=== PATIENT | male | born 1965 | race Caucasian/White ===

== ENCOUNTER 2017-02-14 02:37 | Emergency (ER) | payer OTHER ==
[~2017-02-14] VITALS: Ht 182.9 cm; Wt 113.0 kg
[2017-02-14 02:42] VITALS: BP 159/102; PULSE 57; TEMP 36.6; O2SAT 97; Ht 182.9 cm; Wt 113.0 kg
[2017-02-14] MEDS ORDERED: OXYCODONE/ACETAMINOPHEN 5-325 TAB PO ONE (03:15)
[2017-02-14] MEDS ORDERED: PERCOCET HOME PACK PO ONE (03:15)
[2017-02-14] MEDS ORDERED: DEXAMETHASONE SOD INJ 10 MG/ML VIAL IM ONE (03:15)
--- NOTE | 2017-02-14 03:21 | EMERGENCY ROOM VISIT NOTE ---
History Report prepared by [place]: Wei Christine Under the Supervision of: Dr. Panfilo Jon D.O. First contact with patient: 02:51 Chief Complaint: PAIN (GENERALIZED) Stated Complaint: PAIN History of Present Illness The patient is a 51 year old male who presents to the Emergency Room with complaints of persistent numbness in the right lower extremity. The patient states that the numbness starts below the waist and shoots down into the right foot. He notes that he threw his back out two weeks ago and has a history of lower back issues. His back issues are commonly improved by chiropractor intervention, however this has not relieved his symptoms currently. The patient visited [facility] before this visit and was given Hydrocodone, Flexeril and steroid prescriptions. He denies having any bowel movement irregularities, or becoming incontinent. Source of History: patient Position: leg (right) Quality: numbness Timing: other (Persistent) Note: Denies bowel movement irregularities. Review of Systems See HPI for pertinent positives and negatives. A total of ten systems were reviewed and were otherwise negative. Past Medical & Surgical Medical Problems: (1) Back pain Back pain Family History Diabetes mellitus FH: heart disease Hypertension Social History Smoking Status: Current Every Day Smoker Drug Use: none Marital Status: Housing Status: lives with significant other Occupation Status: employed Current/Historical Medications Unable to Obtain Active Prescriptions or Reported Meds Allergies Coded Allergies: No Known Allergies (Unverified Allergy, NONE, 01/04/09) Physical Exam Vital Signs Date Time Temp Pulse Resp B/P (MAP) Pulse Ox O2 Delivery O2 Flow Rate FiO2 02/14/17 02:42 36.6 57 18 159/102 97 Room Air Physical Exam GENERAL: Awake, alert, well-appearing, in no distress HENT: Normocephalic, atraumatic. Oropharynx unremarkable. EYES: Normal conjunctiva. Sclera non-icteric. NECK: Supple. No nuchal rigidity. FROM. No JVD. RESPIRATORY: Clear to auscultation. CARDIAC: Regular rate, normal rhythm. Extremities warm and well perfused. Pulses equal. ABDOMEN: Soft, non-distended. No tenderness to palpation. No rebound or guarding. No masses. RECTAL: Deferred. MUSCULOSKELETAL: Chest examination reveals no tenderness. The back is symmetrical on inspection without obvious abnormality. There is right lower back tenderness to palpation. There is also tenderness across the right Piriformis. He is ambulatory and able to stand. Negative straight leg raise. No joint edema. LOWER EXTREMITIES: Calves are equal size bilaterally and non-tender. No edema. No discoloration. NEURO: Normal sensorium. No sensory or motor deficits noted. SKIN: No rash or jaundice noted. Medical Decision & Procedures ED Course 0303: The patient was evaluated in room A10. A complete history and physical exam was performed. 0315: Ordered Oxycodone 1 homepack PO, Oxycodone 1 tablet PO, Dexamethasone 10 mg IM. 0331: I reevaluated the patient. Discussed results and discharge instructions: He verbalized understanding and agreement. The patient is ready for discharge. Medical Decision Differential Diagnosis includes; Sciatica, herniated disc, pinched nerve, neuropathy. Pt has no clinical exam evidence of cauda equina; can stand, ambulates; has exam suggestive of sciatica Will give steroid injection; change to percocet; encouraged to use the prednisone prescribed earlier today [place] Drug Monitoring Program Search Results: patient reviewed within database, no issues identified Drug Monitoring Findings: Patient was reviewed on [place] Drug Monitoring Program. Medication Reconcilliation Current Medication List: was personally reviewed by me Blood Pressure Screening Patient's blood pressure: Elevated blood pressure Blood pressure disposition: Referred to PCP Impression Primary Impression: Sciatica Scribe Attestation The scribe's documentation has been prepared under my direction and personally reviewed by me in its entirety. I confirm that the note above accurately reflects all work, treatment, procedures, and medical decision making performed by me. Departure Information Dispostion Home / Self-Care Prescriptions Oxycodone/Acetaminophen 5MG/325MG (PERCOCET 5MG/325MG) Tab 1 TAB PO Q4H Y for Pain, #12 TAB Prov: Panfilo Jon, DO 02/14/17 Referrals No Doctor, Assigned (PCP) Patient Instructions ED Sciatica, My [facility] Additional Instructions Continue flexeril, ibuprofen, prednisone, and narcotic pain med
[2017-02-14] MEDS ORDERED: OXYC-57 PO (03:39)
[2017-02-14] MEDS ORDERED: NAPR-1169 PO (12:02)
[2017-02-14] MEDS ORDERED: PRED20TA PO (12:02)
[2017-02-14] MEDS ORDERED: CYCL10TA6 PO (12:02)
[2017-02-14] MEDS ORDERED: OXYC1TAB3 PO (16:21)
== END 2017-02-14 03:45 | disposition home or self-care (01) ==
LOC: C.EDB 02:38 → C.EDA 03:45
DX: M54.41 Lumbago with sciatica, right side (principal); F17.210 Nicotine dependence, cigarettes, uncomplicated

== ENCOUNTER 2017-02-14 11:45 | Emergency (ER) | payer OTHER ==
[~2017-02-14] VITALS: Ht 182.9 cm; Wt 113.5 kg
[~2017-02-14 11:45] MED LIST: OXYC-57 PO
[2017-02-14 11:47] VITALS: TEMP 36.7; Ht 182.9 cm; Wt 113.5 kg
[2017-02-14] MEDS ORDERED: NAPR-1169 PO (12:02)
[2017-02-14] MEDS ORDERED: CYCL10TA6 PO (12:02)
[2017-02-14] MEDS ORDERED: PRED20TA PO (12:02)
[2017-02-14] MEDS ORDERED: ONDANSETRON INJ 2 MG/ML 2 ML VIAL IV STA (12:51)
[2017-02-14] MEDS ORDERED: HYDROmorphone INJ 1 MG/ML SYR IV STA (12:51)
--- NOTE | 2017-02-14 12:56 | EMERGENCY ROOM VISIT NOTE ---
History Report prepared by [place]: Max Owen Under the Supervision of: Dr. James Rodriguez M.D. First contact with patient: 12:38 Chief Complaint: BACK PAIN Stated Complaint: BACK PAIN History of Present Illness The patient is a 51 year old male who presents to the Emergency Room with complaints of worsening back pain for the past two days, and the pain is worse with movement. The patient states that he went to [facility] yesterday and came to the ED last night for the pain, however it keeps getting worse, and the pain is now going down his right leg. 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 He denies any fevers. The patient states that he has taken 4 total Percocet this morning at 0400, 0700, 1000, and 1100. The patient states that he has had similar symptoms two years ago, though it was not as severe. He states that he has not had a bowel movement today, and he denies any surgeries on his back. He additionally states that he went to the chiropractor, and it did not help. Source of History: patient Onset: two days ago Position: back Timing: worsening Modifying Factors (Worsening): movement Associated Symptoms: No fevers Note: Associated symptoms: Leg pain Review of Systems See HPI for pertinent positives & negatives. A total of 10 systems reviewed and were otherwise negative. Past Medical & Surgical Medical Problems: (1) Back pain Old medical records were reviewed. Nurse's notes were reviewed and I agree with. Family History Diabetes mellitus FH: heart disease Hypertension Social History Smoking Status: Never Smoker Drug Use: none Marital Status: Housing Status: lives with significant other Occupation Status: employed Current/Historical Medications Scheduled Naproxen (Naprosyn), 500 MG PO Q12H Prednisone (Prednisone), 60 MG PO DAILY Scheduled PRN Cyclobenzaprine Hcl (Flexeril), 10 MG PO Q8H PRN for Muscle Spasms Oxycodone Immediate Rel Tab (Roxicodone Ir), 1-2 TAB PO Q4H PRN for Severe Pain Oxycodone/Acetaminophen 5MG/325MG (Percocet 5MG/325MG), 1 TAB PO Q4H PRN for Pain Allergies Coded Allergies: No Known Allergies (Unverified Allergy, NONE, 01/04/09) Physical Exam Vital Signs Date Time Temp Pulse Resp B/P (MAP) Pulse Ox O2 Delivery O2 Flow Rate FiO2 02/14/17 16:38 64 16 152/84 94 02/14/17 15:25 64 16 145/87 94 Room Air 02/14/17 13:59 62 16 133/90 94 Room Air 02/14/17 11:47 36.7 84 20 161/110 95 Room Air Physical Exam General: Non-ill appearing middle aged male in no acute distress complaiing of back pain with movement. HEENT: Normal cephalic atraumatic. Pupils are equal round and reactive to light. Extraocular movements are intact. Oropharynx is pink with moist mucous membranes. No swelling of the mouth lips or tongue. Neck: Supple with a midline trachea. No meningeal signs or stiffness, no JVD or bruits. No Stridor. Chest: Clear to auscultation bilaterally. No wheezes or rhonchi. No increased work of breathing. Heart: regular rate and rhythm. Abdomen: Soft nontender, nondistended without rebound guarding or rigidity. Extremities: Lower extremities had normal motor and sensation. 2+ reflexes bilaterally. No cyanosis clubbing or edema. No calf tenderness or assymetry Spine/Back. Non tender to palpation. No CVA tenderness Skin: Good turgor without rashes. Neurologic exam: Cranial nerves two through 12 are intact. Motor and sensation are intact and symmetrical throughout. Medical Decision & Procedures ER Provider Diagnostic Interpretation: Radiology results as stated below per my review and radiologist interpretation: LUMBAR SPINE W/O CONTRAST HISTORY: Pain. Neuropathy. low back pain TECHNIQUE: Multiplanar multisequence MRI of the lumbar spine was performed without the use of contrast. COMPARISON: None. FINDINGS: For the purpose of the report the L5-S1 disc space will be located on axial image 27 of 30. Unremarkable signal characteristics the vertebral bodies. Mild disc desiccation and posterior disc herniation L4-L5 based on the sagittal images. Vertebral body stature is normal throughout. L1-L2: No significant central canal or neural foraminal narrowing. L2-L3: No significant central canal or neural foraminal narrowing. L3-L4: No significant central canal or neural foraminal narrowing. L4-L5: Large central posterior disc herniation creating significant narrowing of spinal canal. Neuroforamina are patent bilaterally. Mild degenerative change posterior facets. L5-S1: Mild central disc bulge. Minimal impact anterior thecal sac. Neuroforamina show only minimal narrowing of the left. IMPRESSION: 1. Large central disc herniation L4-L5. 2. Minimal disc bulge L5-S1. The above report was generated using voice recognition software. It may contain grammatical, syntax or spelling errors. Electronically signed by: Darryl Lewis M.D. 02/14/2017 3:33 PM Dictated Date/Time: 02/14/2017 3:31 PM ORBITS FOR MRI CLINICAL HISTORY: 51 years-old Male presenting with eval for metal, MRI schedulred. TECHNIQUE: 3 views of the orbits were obtained. COMPARISON: None. FINDINGS: No radiopaque or metallic foreign body projects over the orbits. Bony orbits normal. Paranasal sinuses grossly clear. Bony nasal septum midline. IMPRESSION: No intraorbital metallic foreign body to preclude MRI. Electronically signed by: Yusuf Romano M.D. 02/14/2017 1:41 PM Dictated Date/Time: 02/14/2017 1:40 PM Laboratory Results 02/14/17 13:15 Red Blood Count 5.18, Mean Corpuscular Volume 90.0, Mean Corpuscular Hemoglobin 30.3, Mean Corpuscular Hemoglobin Concent 33.7, Mean Platelet Volume 9.0, Neutrophils (%) (Auto) 86.2, Lymphocytes (%) (Auto) 12.6, Monocytes (%) (Auto) 0.6, Eosinophils (%) (Auto) 0.0, Basophils (%) (Auto) 0.3, Neutrophils # (Auto) 3.00, Lymphocytes # (Auto) 0.44, Monocytes # (Auto) 0.02, Eosinophils # (Auto) 0.00, Basophils # (Auto) 0.01 02/14/17 13:15 Test 02/14/17 13:15 White Blood Count 3.48 K/uL (4.8-10.8) Red Blood Count 5.18 M/uL (4.7-6.1) Hemoglobin 15.7 g/dL (14.0-18.0) Hematocrit 46.6 % (42-52) Mean Corpuscular Volume 90.0 fL (80-100) Mean Corpuscular Hemoglobin 30.3 pg (25-34) Mean Corpuscular Hemoglobin Concent 33.7 g/dl (32-36) Platelet Count 276 K/uL (130-400) Mean Platelet Volume 9.0 fL (7.4-10.4) Neutrophils (%) (Auto) 86.2 % Lymphocytes (%) (Auto) 12.6 % Monocytes (%) (Auto) 0.6 % Eosinophils (%) (Auto) 0.0 % Basophils (%) (Auto) 0.3 % Neutrophils # (Auto) 3.00 K/uL (1.4-6.5) Lymphocytes # (Auto) 0.44 K/uL (1.2-3.4) Monocytes # (Auto) 0.02 K/uL (0.11-0.59) Eosinophils # (Auto) 0.00 K/uL (0-0.5) Basophils # (Auto) 0.01 K/uL (0-0.2) RDW Standard Deviation 39.6 fL (36.4-46.3) RDW Coefficient of Variation 12.1 % (11.5-14.5) Immature Granulocyte % (Auto) 0.3 % Immature Granulocyte # (Auto) 0.01 K/uL (0.00-0.02) Anion Gap 7.0 mmol/L (3-11) Est Creatinine Clear Calc Drug Dose 118.6 ml/min Estimated GFR () 104.5 Estimated GFR (Non- 90.2 BUN/Creatinine Ratio 14.5 (10-20) Calcium Level 9.0 mg/dl (8.5-10.1) Chemistry Specimen Hemolysis Laboratory studies as stated above per my review. Medications Administered Medications (Trade) Dose Ordered Sig/La Route Start Time Stop Time Status Last Admin Dose Admin Ondansetron HCl (Zofran Inj) 4 mg NOW STAT IV 02/14/17 12:51 02/14/17 12:52 DC 02/14/17 13:27 4 MG Hydromorphone HCl (Dilaudid Inj) 1 mg NOW STAT IV 02/14/17 12:51 02/14/17 12:52 DC 02/14/17 13:28 1 MG ED Course 1238: Past medical records reviewed. The patient was evaluated in room C11, and a complete history and physical examination were performed. 1251: Dilaudid Inj 1mg IV, Zofran Inj 4mg IV 1457: I reevaluated the patient, and he was resting. 1523: I reassessed the patient, and he just came back from MRI, and he is comfortable. 1615: I discussed the patient's case with Dr. Roman, Orthopedic Surgery, and he feels that patient can go home, and he agrees to the treatment plan. 1620: Upon reevaluation, the patient is feeling better. I discussed the results and treatment plan with him. He verbalized agreement of the treatment plan. The patient was discharged home. Medical Decision Differentials include, but are not limited to; low back pain, disc disease, cauda equina, and infection. This patient comes in as described above he's had ongoing back pain is a history of back problems in the past was seen yesterday and received a shot of steroids as well as pain medications. He has some subjective tingling going down mostly his right leg but on exam he is no significant numbness or weakness and has intact reflexes. He had a normal bowel bladder function and has nothing to suggest cauda equina syndrome or infection. IV access established and he was given IV morphine and IV Zofran. He assures me he will take a cab home and will not drive. I did do an MRI and he is a large central protruding disc at L4 5 and a small disc at L5-S1. He is feeling much better and strongly desires to go home. He does not want to be admitted. He will continue use his anti-inflammatory, muscle relaxants, and prednisone. For pain, I gave a prescription for OxyIR 5 mill grams, one or 2 pills every 4-6 hours as needed. He was warned that this could make him drowsy and do not take before drinking, driving, working. I did talk to Dr. Roman who said that they can follow up with him in the office tomorrow the patient's post call and set up that appointment. I encouraged him return ER if: increasing pain, change in bowel bladder function, worsening symptoms, or new problems or concerns. He was happy the plan and discharged to home. Medication Reconcilliation Current Medication List: was personally reviewed by me Blood Pressure Screening Patient's blood pressure: Elevated blood pressure Blood pressure disposition: Elevated BP felt to be situational Consults Time Called: 1610 Consulting Physician: Dr. Roman, Orthopedic [facility] Returned Call: 1615 I discussed the patient's case with Dr. Roman, Orthopedic Surgery, and he feels that patient can go home, and he agrees to the treatment plan. Impression Primary Impression: Lumbar disc disease Additional Impression: Low back pain Scribe Attestation The scribe's documentation has been prepared under my direction and personally reviewed by me in its entirety. I confirm that the note above accurately reflects all work, treatment, procedures, and medical decision making performed by me. Departure Information Dispostion Home / Self-Care Prescriptions Oxycodone Immediate Rel Tab (ROXICODONE IR) 5 Mg Tab 1-2 TAB PO Q4H Y for Severe Pain, #24 TAB Prov: James Rodriguez M.D. 02/14/17 Referrals No Doctor, Assigned (PCP) Forms HOME CARE DOCUMENTATION FORM, IMPORTANT VISIT INFORMATION Patient Instructions My [facility] Additional Instructions Rest Drink plenty of fluids Continue your steriods and anti-inflammatory meds Call Dr. Roman's (spinal surgeon with Dr. Ulloa and [facility]'s group) office tommorrow and get seen in the next 1-2 days. When you call asked to talk to Rina saying that we talked to Dr. Roman The number is [phone] For more severe pain, OxyIR 5 mg, one or 2 pills every 4-6 hours as needed OxyIR may make you drowsy do not take before drinking, driving, working Return to the ER if: Increasing pain, fever or chills, change in bowel or bladder function, numbness weakness, any new problems or concerns. Problem Qualifiers
[2017-02-14 13:35] LABS: BASO % 0.3 %; BASO ABS # 0.01 K/uL (0-0.2); COMPLETE YES; HEMATOCRIT 46.6 % (42-52); IG% 0.3 %; LYMPH % 12.6 %; LYMPH ABS # 0.44 K/uL (1.2-3.4); MEAN CORPUSCULAR HEMOGLOBIN 30.3 pg (25-34); MEAN CORPUSCULAR HGB CONC 33.7 g/dl (32-36); MONO % 0.6 %; NEUT % 86.2 %; PLATELET COUNT 276 K/uL (130-400); RED BLOOD COUNT 5.18 M/uL (4.7-6.1); WHITE BLOOD COUNT 3.48 K/uL (4.8-10.8)
--- NOTE | 2017-02-14 13:42 | DIAGNOSTIC IMAGING REPORT ---
ORBITS FOR MRI CLINICAL HISTORY: 51 years-old Male presenting with eval for metal, MRI schedulred. TECHNIQUE: 3 views of the orbits were obtained. COMPARISON: None. FINDINGS: No radiopaque or metallic foreign body projects over the orbits. Bony orbits normal. Paranasal sinuses grossly clear. Bony nasal septum midline. IMPRESSION: No intraorbital metallic foreign body to preclude MRI. Electronically signed by: Yusuf Romano M.D. 02/14/2017 1:41 PM Dictated Date/Time: 02/14/2017 1:40 PM
[2017-02-14 14:11] LABS: BUN/CREATININE RATIO 14.5 (10-20); CREATININE 0.98 mg/dl (0.60-1.40); POTASSIUM 4.8 mmol/L (3.5-5.1)
--- NOTE | 2017-02-14 15:35 | DIAGNOSTIC IMAGING REPORT ---
LUMBAR SPINE W/O CONTRAST HISTORY: Pain. Neuropathy. low back pain TECHNIQUE: Multiplanar multisequence MRI of the lumbar spine was performed without the use of contrast. COMPARISON: None. FINDINGS: For the purpose of the report the L5-S1 disc space will be located on axial image 27 of 30. Unremarkable signal characteristics the vertebral bodies. Mild disc desiccation and posterior disc herniation L4-L5 based on the sagittal images. Vertebral body stature is normal throughout. L1-L2: No significant central canal or neural foraminal narrowing. L2-L3: No significant central canal or neural foraminal narrowing. L3-L4: No significant central canal or neural foraminal narrowing. L4-L5: Large central posterior disc herniation creating significant narrowing of spinal canal. Neuroforamina are patent bilaterally. Mild degenerative change posterior facets. L5-S1: Mild central disc bulge. Minimal impact anterior thecal sac. Neuroforamina show only minimal narrowing of the left. IMPRESSION: 1. Large central disc herniation L4-L5. 2. Minimal disc bulge L5-S1. The above report was generated using voice recognition software. It may contain grammatical, syntax or spelling errors. Electronically signed by: Darryl Lewis M.D. 02/14/2017 3:33 PM Dictated Date/Time: 02/14/2017 3:31 PM
[2017-02-14] MEDS ORDERED: OXYC1TAB3 PO (16:21)
[2017-02-14 16:38] VITALS: BP 152/84; PULSE 64; O2SAT 94
== END 2017-02-14 16:39 | disposition home or self-care (01) ==
LOC: C.EDB 11:46 → C.EDC 16:39
DX: M51.86 Other intervertebral disc disorders, lumbar region (principal); M54.5 Low back pain; Z83.3 Family history of diabetes mellitus; Z82.49 Family history of ischemic heart disease and other diseases of the circulatory system